=== PATIENT | male | born 1975 | race African-American/Black ===

== ENCOUNTER 2017-12-19 03:20 | Emergency (ER) | payer SELFPAY ==
[~2017-12-19] VITALS: Ht 182.9 cm; Wt 106.6 kg
[2017-12-19 03:48] VITALS: Ht 182.9 cm; Wt 106.6 kg
[2017-12-19 06:50] VITALS: BP 154/97
== END 2017-12-19 06:50 | disposition home or self-care (01) ==
LOC: ED 03:20
DX: J18.9 Pneumonia, unspecified organism (principal); J45.901 Unspecified asthma with (acute) exacerbation
CPT/HCPCS: 87804; J7512; J7620

== ENCOUNTER 2018-02-06 22:35 | Inpatient (IN) | payer SELFPAY ==
[~2018-02-06] VITALS: Ht 180.3 cm; Wt 107.6 kg
[2018-02-06 22:59] VITALS: Ht 180.3 cm; Wt 107.6 kg
[2018-02-06 23:41] LABS: BASOPHIL % 0.9 % (0-2); PLATELET COUNT 352 x10^3mcL (130-400)
[2018-02-06 23:44] LABS: RED CELL DISTRIBUTION WIDTH 15.2 % (11.5-14.5)
[2018-02-06 23:46] LABS: CALCIUM 8.4 mg/dL (8.5-10.1); CARBON DIOXIDE 21.5 mmol/L (21-32); CHLORIDE SERUM 101 mmol/L (98-107); CREATININE SERUM 1.2 mg/dL (0.7-1.3); GFR1 > 60 mL/min; GLUCOSE SERUM 129 mg/dL (74-106); SODIUM SERUM 134 mmol/L (136-145)
[2018-02-07 01:59] LABS: FREE T4 1.14 ng/dL (0.76-1.46); FREE THYROXINE INDEX 2.3 ug/dL (1.4-4.5); T3 TOTAL 0.94 ng/mL
[2018-02-07 02:04] LABS: CHOLESTEROL/HDL RATIO 3.8; MAGNESIUM 1.7 mg/dL (1.8-2.4); PHOSPHOROUS 1.7 mg/dL (2.5-4.9)
[2018-02-07 02:14] VITALS: BP 140/97; BP 142/104
[2018-02-07 02:32] LABS: UA SPECIFIC GRAVITY 1.015 (1.005-1.035); microscopic required? YES; urine erythrocyte NEGATIVE (NEGATIVE)
[2018-02-07 02:39] LABS: IRON 25 ug/dL (65-170); TOTAL IRON BINDING CAPACITY 233 ug/dL (250-450)
[2018-02-07 02:41] LABS: AMPHETAMINE QUAL UR POSITIVE (NEG <=1000)
[2018-02-07 03:17] LABS: RED BLOOD CELLS 4.78 M/mm3 (4.52-5.90)
[2018-02-07 05:49] VITALS: BP 135/94
[2018-02-07 07:31] LABS: BASOPHIL % 0.5 % (0-2); PLATELET COUNT 332 x10^3mcL (130-400)
[2018-02-07 07:36] LABS: RED CELL DISTRIBUTION WIDTH 15.8 % (11.5-14.5)
[2018-02-07 07:49] LABS: CALCIUM 8.3 mg/dL (8.5-10.1); CARBON DIOXIDE 27.1 mmol/L (21-32); CHLORIDE SERUM 101 mmol/L (98-107); CREATININE SERUM 1.3 mg/dL (0.7-1.3); GFR1 > 60 mL/min; GLUCOSE SERUM 94 mg/dL (74-106); MAGNESIUM 1.9 mg/dL (1.8-2.4); PHOSPHOROUS 2.9 mg/dL (2.5-4.9); POTASSIUM SERUM 3.8 mmol/L (3.5-5.1); SODIUM SERUM 136 mmol/L (136-145)
[2018-02-07 09:26] VITALS: BP 118/83
[2018-02-07 13:00] VITALS: BP 113/80
[2018-02-07 16:43] VITALS: BP 123/82
[2018-02-07 21:13] VITALS: BP 111/75
[2018-02-08 05:53] VITALS: BP 109/81
[2018-02-08 07:57] LABS: BASOPHIL % 0.4 % (0-2); PLATELET COUNT 366 x10^3mcL (130-400)
[2018-02-08 08:01] LABS: RED CELL DISTRIBUTION WIDTH 15.5 % (11.5-14.5)
[2018-02-08 08:52] LABS: CALCIUM 8.9 mg/dL (8.5-10.1); CARBON DIOXIDE 26.2 mmol/L (21-32); CREATININE SERUM 1.6 mg/dL (0.7-1.3); PHOSPHOROUS 3.6 mg/dL (2.5-4.9); POTASSIUM SERUM 4.2 mmol/L (3.5-5.1)
[2018-02-08 09:57] VITALS: BP 148/68
[2018-02-08 13:24] VITALS: BP 129/89
[2018-02-08 16:40] VITALS: BP 116/90
[2018-02-08 21:42] VITALS: BP 114/77
[2018-02-09 06:19] VITALS: BP 105/73
[2018-02-09 06:29] LABS: BASOPHIL % 0.8 % (0-2); PLATELET COUNT 364 x10^3mcL (130-400)
[2018-02-09 06:44] LABS: CALCIUM 8.7 mg/dL (8.5-10.1); CARBON DIOXIDE 20.9 mmol/L (21-32); CREATININE SERUM 2.2 mg/dL (0.7-1.3); MAGNESIUM 2.1 mg/dL (1.8-2.4); POTASSIUM SERUM 5.3 mmol/L (3.5-5.1)
[2018-02-09 07:00] LABS: RED CELL DISTRIBUTION WIDTH 15.7 % (11.5-14.5)
[2018-02-09 09:04] VITALS: BP 124/84
[2018-02-09 17:39] VITALS: BP 97/74
[2018-02-09 21:00] VITALS: BP 116/71
[2018-02-10 06:19] VITALS: BP 100/52
[2018-02-10 06:32] LABS: CALCIUM 8.4 mg/dL (8.5-10.1); CARBON DIOXIDE 23.7 mmol/L (21-32); CREATININE SERUM 1.7 mg/dL (0.7-1.3); MAGNESIUM 2.3 mg/dL (1.8-2.4); POTASSIUM SERUM 4.5 mmol/L (3.5-5.1)
[2018-02-10 06:33] VITALS: BP 112/72
[2018-02-10 07:14] LABS: BASOPHIL % 0.3 % (0-2); PLATELET COUNT 258 x10^3mcL (130-400)
[2018-02-10 09:02] VITALS: BP 106/65
[2018-02-10 17:22] VITALS: BP 108/81
[2018-02-10 21:06] VITALS: BP 128/83
[2018-02-11 06:52] LABS: BASOPHIL % 0.4 % (0-2); PLATELET COUNT 282 x10^3mcL (130-400)
[2018-02-11 06:59] LABS: CALCIUM 8.3 mg/dL (8.5-10.1); CARBON DIOXIDE 24.2 mmol/L (21-32); CREATININE SERUM 1.6 mg/dL (0.7-1.3); MAGNESIUM 2.1 mg/dL (1.8-2.4); PHOSPHOROUS 3.3 mg/dL (2.5-4.9)
[2018-02-11 07:08] LABS: RED CELL DISTRIBUTION WIDTH 15.9 % (11.5-14.5)
[2018-02-11 08:45] VITALS: BP 104/76
[2018-02-11 14:21] VITALS: BP 114/75
[2018-02-11 15:22] LABS: BASOPHIL % 0.7 % (0-2); PLATELET COUNT 265 x10^3mcL (130-400)
[2018-02-11 15:32] LABS: RED CELL DISTRIBUTION WIDTH 15.9 % (11.5-14.5)
[2018-02-11 17:04] VITALS: BP 101/73
[2018-02-11 20:07] VITALS: BP 113/76
[2018-02-12 05:01] VITALS: BP 94/64
[2018-02-12 06:55] LABS: CREATININE SERUM 1.6 mg/dL (0.7-1.3); POTASSIUM SERUM 3.9 mmol/L (3.5-5.1)
[2018-02-12 07:06] LABS: BASOPHIL % 0.4 % (0-2); PLATELET COUNT 276 x10^3mcL (130-400)
[2018-02-12 07:07] LABS: RED CELL DISTRIBUTION WIDTH 15.9 % (11.5-14.5)
[2018-02-12 08:46] VITALS: BP 116/83
[2018-02-12 09:04] VITALS: BP 116/83
[2018-02-12] MEDS ORDERED: LIPI10 PO (12:08)
[2018-02-12] MEDS ORDERED: ECO81 PO (12:09)
[2018-02-12] MEDS ORDERED: CULTURELLE DIGE1 CAP PO (12:09)
[2018-02-12] MEDS ORDERED: METOPROLOL TART25 M1 PO (12:09)
[2018-02-12] MEDS ORDERED: LASIX40 MG PO (12:09)
[2018-02-12] MEDS ORDERED: AUGMENTIN 875-1 EACH PO (12:12)
[2018-02-12 12:39] VITALS: BP 116/83
== END 2018-02-12 15:23 | disposition home or self-care (01) | DRG 871 ==
LOC: ED 22:35 → DU 02-07 00:18
PROVIDERS: Emergency Medicine; Family Medicine Sports Medicine; Student in an Organized Health Care Education/Training Program
DX: A41.9 Sepsis, unspecified organism (principal); J18.9 Pneumonia, unspecified organism; I50.43 Acute on chronic combined systolic (congestive) and diastolic (congestive) heart failure; N17.0 Acute kidney failure with tubular necrosis; I42.0 Dilated cardiomyopathy; J44.1 Chronic obstructive pulmonary disease with (acute) exacerbation; J44.0 Chronic obstructive pulmonary disease with (acute) lower respiratory infection; E87.1 Hypo-osmolality and hyponatremia; I11.0 Hypertensive heart disease with heart failure; D64.9 Anemia, unspecified; E83.42 Hypomagnesemia; E83.39 Other disorders of phosphorus metabolism; R73.03 Prediabetes; F15.10 Other stimulant abuse, uncomplicated; Z87.891 Personal history of nicotine dependence; J20.9 Acute bronchitis, unspecified; E87.5 Hyperkalemia
CPT/HCPCS: 36600; 82962; 83880; 84439; 85378; 87804; 94150; J1644; J1940; J1956; J2060; J2270; J2543; J3490; J7030; J7050; Q0092; Q0162; Q0163

== ENCOUNTER 2018-03-06 02:18 | Emergency (ER) | payer SELFPAY ==
[~2018-03-06] VITALS: Ht 182.9 cm; Wt 99.3 kg
[~2018-03-06 02:18] MED LIST: AUGMENTIN 875-1 EACH PO; CULTURELLE DIGE1 CAP PO; ECO81 PO; LASIX40 MG PO; LIPI10 PO; METOPROLOL TART25 M1 PO
[2018-03-06 03:00] LABS: BASOPHIL % 1.7 % (0-2); PLATELET COUNT 331 x10^3mcL (130-400); RED CELL DISTRIBUTION WIDTH 16.2 % (11.5-14.5)
[2018-03-06 03:06] LABS: CALCIUM 8.7 mg/dL (8.5-10.1); CARBON DIOXIDE 27.8 mmol/L (21-32); CREATININE SERUM 1.4 mg/dL (0.7-1.3); POTASSIUM SERUM 3.6 mmol/L (3.5-5.1)
[2018-03-06 03:11] LABS: BILIRUBIN TOTAL 0.4 mg/dL (0.20-1.00); TOTAL PROTEIN, SERUM 7.5 g/dL (6.4-8.2)
[2018-03-06 07:50] VITALS: BP 121/73
== END 2018-03-06 07:50 | disposition home or self-care (01) ==
LOC: ED 02:18
PROVIDERS: Emergency Medicine
DX: J18.9 Pneumonia, unspecified organism (principal); J40 Bronchitis, not specified as acute or chronic; I10 Essential (primary) hypertension
CPT/HCPCS: 83880; J7030; J7512; J7613; J7644; Q9967

== ENCOUNTER 2018-11-08 19:26 | Emergency (ER) | payer MEDICAID ==
[~2018-11-08] VITALS: Ht 152.4 cm; Wt 115.7 kg
[2018-11-08 19:36] VITALS: Ht 152.4 cm; Wt 115.7 kg
[2018-11-08 20:21] LABS: PLATELET COUNT 311 x10^3mcL (130-400)
[2018-11-08 20:23] LABS: BASOPHIL % 0 % (0-2); CALCIUM 8.9 mg/dL (8.5-10.1); CARBON DIOXIDE 24.7 mmol/L (21-32); CHLORIDE SERUM 99 mmol/L (98-107); CREATININE SERUM 1.2 mg/dL (0.7-1.3); GFR1 > 60 mL/min; GLUCOSE SERUM 100 mg/dL (74-106); POTASSIUM SERUM 3.9 mmol/L (3.5-5.1); RED CELL DISTRIBUTION WIDTH 16.8 % (11.5-14.5); SODIUM SERUM 136 mmol/L (136-145)
[2018-11-08 20:28] LABS: ALBUMIN 3.7 g/dL (3.4-5.0); ALKALINE PHOSPHATASE 97 U/L (46-116); ALT/SGPT 38 U/L (16-63); AST/SGOT 43 U/L (15-37); BILIRUBIN TOTAL 0.5 mg/dL (0.20-1.00); TOTAL PROTEIN, SERUM 8.1 g/dL (6.4-8.2)
[2018-11-08] MEDS ORDERED: DESMOPRESSIN A0.2 MG PO (20:35)
[2018-11-08] MEDS ORDERED: LEVOFLOXACIN500 M1 PO (20:36)
[2018-11-08] MEDS ORDERED: FLA500 PO (20:36)
[2018-11-08 21:22] VITALS: BP 143/89
== END 2018-11-08 21:22 | disposition home or self-care (01) ==
LOC: ED 19:26
PROVIDERS: Emergency Medicine
DX: J40 Bronchitis, not specified as acute or chronic (principal); I50.9 Heart failure, unspecified; I11.9 Hypertensive heart disease without heart failure; E78.00 Pure hypercholesterolemia, unspecified; Z88.0 Allergy status to penicillin
CPT/HCPCS: 36415; 83880; Q0092

== ENCOUNTER 2019-01-02 00:21 | Emergency (ER) | payer MEDICAID ==
[~2019-01-02] VITALS: Ht 182.9 cm; Wt 118.8 kg
[~2019-01-02 00:21] MED LIST changes: +DESMOPRESSIN A0.2 MG PO; +FLA500 PO; +LEVOFLOXACIN500 M1 PO
[2019-01-02 00:37] VITALS: Ht 182.9 cm; Wt 118.8 kg
[2019-01-02 01:50] VITALS: BP 146/89
== END 2019-01-02 02:02 | disposition home or self-care (01) ==
LOC: ED 00:21
DX: R21 Rash and other nonspecific skin eruption (principal); I11.0 Hypertensive heart disease with heart failure; I50.9 Heart failure, unspecified; E78.00 Pure hypercholesterolemia, unspecified; Z88.0 Allergy status to penicillin

== ENCOUNTER 2019-02-18 15:18 | Emergency (ER) | payer MEDICAID ==
[~2019-02-18] VITALS: Ht 182.9 cm; Wt 122.5 kg
[2019-02-18 15:41] VITALS: Ht 182.9 cm; Wt 122.5 kg
[2019-02-18 16:41] VITALS: BP 130/69
== END 2019-02-18 16:41 | disposition home or self-care (01) ==
LOC: ED 15:18
DX: R05 Cough (principal); I11.0 Hypertensive heart disease with heart failure; I50.9 Heart failure, unspecified; E78.00 Pure hypercholesterolemia, unspecified; Z20.828 Contact with and (suspected) exposure to other viral communicable diseases; Z88.0 Allergy status to penicillin

== ENCOUNTER 2019-07-15 19:12 | Emergency (ER) | payer MEDICAID ==
[~2019-07-15] VITALS: Ht 180.3 cm; Wt 124.3 kg
[2019-07-15 19:46] VITALS: Ht 180.3 cm; Wt 124.3 kg
[2019-07-15 21:21] VITALS: BP 150/80
== END 2019-07-15 21:21 | disposition home or self-care (01) ==
LOC: ED 19:12
DX: M77.51 Other enthesopathy of right foot and ankle (principal); I11.0 Hypertensive heart disease with heart failure; I50.9 Heart failure, unspecified; E78.00 Pure hypercholesterolemia, unspecified; Z88.0 Allergy status to penicillin
CPT/HCPCS: Q0092

== ENCOUNTER 2019-12-20 23:12 | Emergency (ER) | payer MEDICAID ==
[~2019-12-20] VITALS: Ht 182.9 cm; Wt 92.6 kg
[2019-12-20 23:19] VITALS: Ht 182.9 cm; Wt 92.6 kg
[2019-12-21 00:42] VITALS: BP 142/83
== END 2019-12-21 00:42 | disposition home or self-care (01) ==
LOC: ED 23:12
DX: S29.011A Strain of muscle and tendon of front wall of thorax, initial encounter (principal); I11.0 Hypertensive heart disease with heart failure; I50.9 Heart failure, unspecified; E78.00 Pure hypercholesterolemia, unspecified; Z88.0 Allergy status to penicillin; X58.XXXA Exposure to other specified factors, initial encounter; Y93.89 Activity, other specified; Y92.89 Other specified places as the place of occurrence of the external cause; Y99.8 Other external cause status
CPT/HCPCS: Q0092